=== PATIENT | male | born 1950 | race Caucasian/White ===

== ENCOUNTER 2019-07-03 13:06 | Emergency (ER) | payer OTHER, SELFPAY ==
[2019-07-03 13:06] VITALS: BP 124/85; PULSE 86; RESP 20; TEMP 37; O2SAT 95; BMI 26.6
--- NOTE | 2019-07-03 13:21 | W.ED.CHESTPA ---
HPI - Chest Pain General: Chief Complaint: Abdominal Pain Stated Complaint: ABDOMEN PAIN AND BACK PAIN Time Seen by Provider: 07/03/19 13:07 History of Present Illness: HPI narrative: 69-year-old male comes in complaining of count of epigastric right upper quadrant pain radiating into his chest and into his back. He has had nausea with no vomiting he has had this similar symptoms in the past several years ago is not sure how many he had a stress test which he believes was negative he tells me he did not have any further evaluation after that test. He denies shortness of breath or cough associated with chest pain. He states the pain is much worse with movement especially when he sits up for exam and with deep breath. MD complaint: chest pain Onset (ago): day(s) (1 to 2 days) Timing of current episode: constant Prior episodes: Yes Onset: during rest and other (Worse with position changes and with deep breathing) Pain radiation: back (Middle upper back) Quality: tightness and sharp Relieving factors: remaining still and other (Shallow breathing) Associated symptoms: Reports abdominal pain; Deny dyspnea or fever(s) Review of Systems Const: Denies: fever, chills, body aches, change in appetite, fatigue or malaise ENMT: Denies: throat pain, ear pain, nasal discharge or nasal congestion Card: Denies: chest pain, edema, shortness of breath on exertion or shortness of breath when lying down Resp: Denies: shortness of breath, productive cough or non-productive cough GI: Reports: abdominal pain : Denies: flank pain, painful urination, urinary frequency or urinary urgency Skin/Breast: Denies: rash or itching PFSH ED PFSH: Statuses (acute, chronic, etc) shown below reflect problem list status as previously entered and may not be historically accurate Social History Smoking and tobacco status: former smoker Physical Exam Const: COMMON NORMALS: no apparent distress GENERAL APPEARANCE: cooperative and comfortable ORIENTATION/CONSCIOUSNESS: Yes awake, Yes oriented to person, Yes oriented to place and Yes oriented to time HENMT: COMMON NORMALS: normocephalic, head/scalp atraumatic, hearing grossly normal bilaterally, external ears normal, EAC's normal, TM's normal bilaterally, nasal mucous membranes and turbinates normal, moist oral mucous membranes and oropharynx normal HEAD & SCALP: normocephalic and atraumatic NOSE: nasal mucous membranes and turbinates normal EXTERNAL EAR: Yes external ears normal EXTERNAL AUDITORY CANAL: EAC's normal TYMPANIC MEMBRANE: TM's normal bilaterally Eye: COMMON NORMALS: PERRL, EOMs intact bilaterally, conjunctivae normal and no scleral icterus CONJUNCTIVA: Yes conjunctivae normal PUPIL: Yes PERRL Neck/C-Spine: COMMON NORMALS: full ROM, no lymphadenopathy, supple and no JVD Lymph: LYMPHATIC: no lymphadenopathy noted and no lymphedema noted Resp: COMMON NORMALS: normal respiratory effort, no retractions, no use of accessory muscles and clear to auscultation bilaterally AUSCULTATION: clear to auscultation bilaterally Cardio: COMMON NORMALS: no JVD, regular rate, regular rhythm and no murmurs RATE: regular rate RHYTHM: regular rhythm GI: COMMON NORMALS: soft to palpation and no hepatosplenomegaly AUSCULTATION: Yes normoactive bowel sounds PALPATION: Yes soft, No tender, No guarding and Yes no hepatosplenomegaly Extremity: COMMON NORMALS: normal to inspection, normal capillary refill, no clubbing, cyanosis or edema, no calf tenderness and no pedal edema Neuro: SENSORIUM/ORIENTATION: Yes oriented to person, Yes oriented to place and Yes oriented to time Skin: COMMON NORMALS: no rashes or lesions noted GENERAL SKIN EXAM: no rashes or lesions noted Course ED course: Full evaluation of the patient's his imaging done. He did get some relief with the GI cocktail. start him on pantoprazole 40 daily. Vital Signs: Vital signs: Vital Signs Temperature 98.6 F 07/03/19 13:06 Pulse Rate 71 07/03/19 17:50 Respiratory Rate 16 07/03/19 17:50 Blood Pressure 131/83 07/03/19 17:50 Pulse Oximetry 94 07/03/19 17:50 MDM - Chest Pain Lab Data: Labs: Lab Results 07/03/19 07/03/19 07/03/19 Range/Units 12:51 12:51 12:51 WBC 8.8 (4.0-10.0) 10^3/ uL RBC 4.16 (4.1-5.3) 10^6/u L Hgb 13.4 (11.7-16.6) g/dL Hct 41.4 L (42.0-52.0) % MCV 99.5 H (80-94) fL MCH 32.2 (28.0-34.0) pg MCHC 32.4 (30.0-36.0) g/dL RDW 13.3 (12.1-15.1) % Plt Count 304 (130-400) 10^3/c mm MPV 10.2 (7.4-10.4) fL Neut % (Auto) 64.7 % Lymph % (Auto) 20.3 % Stevens % (Auto) 11.5 % Eos % (Auto) 1.9 % Baso % (Auto) 0.5 % Neut # (Auto) 5.7 (1.8-7.7) 10^3/u L Lymph # (Auto) 1.8 (0.8-4.8) 10^3/u L Stevens # (Auto) 1.0 H (0.2-0.9) 10^3/u L Eos # (Auto) 0.2 (0.0-0.8) 10^3/u L Baso # (Auto) 0.0 (0.0-0.1) 10^3/u L Nucleated RBC % (a uto) 0 % Nucleated RBCs # 0.0 /100WBC PT 13.40 H (10.5-13.3) SECO NDS INR 0.99 (0.8-1.2) APTT 33.9 (23.9-36.7) SECO NDS D-Dimer 2.24 H (0-0.59) ug/mIFE U Sodium 137 (136-145) mmol/L Potassium 3.9 (3.5-5.1) mmol/L Chloride 98 (98-107) mmol/L Carbon Dioxide 26 (22-29) mmol/L Anion Gap 16.9 (5-19) BUN 6 L (8-23) mg/dL Creatinine 1.2 (0.7-1.2) mg/dL GFR Calculation 60.2 L (90-130) mL/min Glucose 104 (74-106) mg/dL Calcium 10.3 H (8.8-10.2) mg/Dl Magnesium 2.0 (1.7-2.3) mg/dL Total Bilirubin 0.3 (0.15-1.2) mg/dL AST 20 (0-40) U/L ALT 24 (0-41) U/L Alkaline Phosphata se 56 (40-130) IU/L Troponin T Baselin e (0-15) ng/mL Troponin T 120 Min [place] (0-15) ng/mL Delta Troponin T (0-10) ABS# Total Protein 6.5 L (6.6-8.7) g/dL Albumin 3.5 (3.5-5.2) g/dL Globulin 3.0 (1.3-4.6) g/dL Lipase 34 (13-60) U/L 07/03/19 07/03/19 Range/Units 12:51 14:55 WBC (4.0-10.0) 10^3/ uL RBC (4.1-5.3) 10^6/u L Hgb (11.7-16.6) g/dL Hct (42.0-52.0) % MCV (80-94) fL MCH (28.0-34.0) pg MCHC (30.0-36.0) g/dL RDW (12.1-15.1) % Plt Count (130-400) 10^3/c mm MPV (7.4-10.4) fL Neut % (Auto) % Lymph % (Auto) % Stevens % (Auto) % Eos % (Auto) % Baso % (Auto) % Neut # (Auto) (1.8-7.7) 10^3/u L Lymph # (Auto) (0.8-4.8) 10^3/u L Stevens # (Auto) (0.2-0.9) 10^3/u L Eos # (Auto) (0.0-0.8) 10^3/u L Baso # (Auto) (0.0-0.1) 10^3/u L Nucleated RBC % (a uto) % Nucleated RBCs # /100WBC PT (10.5-13.3) SECO NDS INR (0.8-1.2) APTT (23.9-36.7) SECO NDS D-Dimer (0-0.59) ug/mIFE U Sodium (136-145) mmol/L Potassium (3.5-5.1) mmol/L Chloride (98-107) mmol/L Carbon Dioxide (22-29) mmol/L Anion Gap (5-19) BUN (8-23) mg/dL Creatinine (0.7-1.2) mg/dL GFR Calculation (90-130) mL/min Glucose (74-106) mg/dL Calcium (8.8-10.2) mg/Dl Magnesium (1.7-2.3) mg/dL Total Bilirubin (0.15-1.2) mg/dL AST (0-40) U/L ALT (0-41) U/L Alkaline Phosphata se (40-130) IU/L Troponin T Baselin e 15 (0-15) ng/mL Troponin T 120 Min [place] 13.94 (0-15) ng/mL Delta Troponin T -1.06 L (0-10) ABS# Total Protein (6.6-8.7) g/dL Albumin (3.5-5.2) g/dL Globulin (1.3-4.6) g/dL Lipase (13-60) U/L Discharge Plan Discharge Patient Disposition: Home, Self-Care Clinical Impression: Chest pain due to GERD Condition: Stable Prescriptions: New pantoprazole 40 mg tablet,delayed release (DR/EC) 40 mg PO QAM 28 Days Qty: 28 RF: 0 Discharge Orders: Discharge Order (Routine); Ordered 07/03/19 Ordered By: Bear Neal Discharge Diet: As Directed Discharge Activity: Increase activity as tolerated Activity Restrictions/Additional Instructions: Follow-up with your primary care doctor in 1 week return if there are further problems Discharge Date/Time: 07/03/19 17:50 Coding Level of Care Code ED Screening Representative for Normag Enmanuel
--- NOTE | 2019-07-03 13:23 | XRR_ITS ---
PROCEDURE INFORMATION: Exam: XR Chest, 1 View Exam date and time: 07/03/2019 1:43 PM Age: 69 years old Clinical indication: Chest pain; Type not specified TECHNIQUE: Imaging protocol: XR of the chest Views: 1 view. COMPARISON: No relevant prior studies available. FINDINGS: Lungs: Unremarkable. No consolidation. Pleural space: Unremarkable. No pleural effusion. No pneumothorax. Heart/Mediastinum: Unremarkable. No cardiomegaly. Bones/joints: Unremarkable. XR/XR chest 1V portable [id number] IMPRESSION: No acute findings.
--- NOTE | 2019-07-03 13:25 | ECG_ITS ---
Measurements Intervals [place] Rate: 82 P: 70 NM: 178 QRS: -86 QRSD: 121 T: 38 QT: 360 QTc: 422 SINUS RHYTHM RIGHT BUNDLE BRANCH BLOCK [120+ ms QRS DURATION, UPRIGHT V1, 40+ ms S IN I/a I/aVL/V4/V5/V6] INFERIOR MYOCARDIAL INFARCTION , PROBABLY OLD [40+ ms Q WAVE AND/OR ST/T AB ABNORMALITY IN II/aVF] No previous ECG available for comparison Electronically Signed On 07-03-2019 20:28:42 SHEET ROLLER OPERATOR by Hanna Moon M.D. [email or web address] curiel
[2019-07-03 13:35] VITALS: O2SAT 94
[2019-07-03 13:38] LABS: Basophils % 0.5 %; Eosinophils # 0.2 10^3/uL (0.0-0.8); Eosinophils % 1.9 %; Hematocrit 41.4 % (42.0-52.0); Hemoglobin 13.4 g/dL (11.7-16.6); Lymphocytes # 1.8 10^3/uL (0.8-4.8); Lymphocytes % 20.3 %; Mean Corpuscular HGB Conc 32.4 g/dL (30.0-36.0); Mean Corpuscular Hemoglobin 32.2 pg (28.0-34.0); Mean Corpuscular Volume 99.5 fL (80-94); Mean Platelet Volume 10.2 fL (7.4-10.4); Monocytes % 11.5 %; Neutrophils # 5.7 10^3/uL (1.8-7.7); Neutrophils % 64.7 %; Nucleated Red Blood Cells % 0 %; Platelet Count 304 10^3/cmm (130-400); Red Blood Count 4.16 10^6/uL (4.1-5.3); Red Cell Distribution Width 13.3 % (12.1-15.1); White Blood Count 8.8 10^3/uL (4.0-10.0)
[2019-07-03 13:47] LABS: Alanine Aminotransferase 24 U/L (0-41); Albumin Level 3.5 g/dL (3.5-5.2); Alkaline Phosphatase 56 IU/L (40-130); Anion Gap 16.9 (5-19); Aspartate Amino Transferase 20 U/L (0-40); Blood Urea Nitrogen 6 mg/dL (8-23); Calcium 10.3 mg/Dl (8.8-10.2); Carbon Dioxide 26 mmol/L (22-29); Chloride 98 mmol/L (98-107); Glomerular Filtration Rate 60.2 mL/min (90-130); Glucose 104 mg/dL (74-106); Lipase 34 U/L (13-60); Potassium 3.9 mmol/L (3.5-5.1); Sodium 137 mmol/L (136-145); Total Bilirubin 0.3 mg/dL (0.15-1.2); Total Protein 6.5 g/dL (6.6-8.7)
[2019-07-03 13:49] LABS: Troponin(5th) Baseline 15 ng/mL (0-15)
[2019-07-03] MEDS: morphine 4 mg/mL SDV 1 mL IVP (13:54)
[2019-07-03] MEDS: ondansetron 2 mg/ML SDV 2 mL 4 MG IVP (13:54)
[2019-07-03 13:56] LABS: INR 0.99 (0.8-1.2); Partial Thromboplastin Time 33.9 SECONDS (23.9-36.7)
[2019-07-03 13:58] LABS: D Dimer 2.24 ug/mIFEU (0-0.59)
--- NOTE | 2019-07-03 14:02 | CT_ITS ---
WS: [id number] CT ABDOMEN AND PELVIS WITH CONTRAST HISTORY: RUQ/epigastric pain TECHNIQUE: Imaging performed of the abdomen and pelvis with IV contrast. Single phase imaging of the abdomen. Coronal and sagittal reformats are submitted. All CT scans at [facility] use at least one of these dose optimization techniques: automated exposure control; mA and/or kV adjustment per patient size (includes targeted exams where dose is matched to clinical indication); or iterativ e reconstruction. IV CONTRAST: Omnipaque 300; 95 mL IV. Oral contrast: No DLP: 1079.73 mGy.cm COMPARISON: None available. Lower thorax: Emphysematous changes at the lung bases. No pleural effusion. Heart is normal size. No hiatal hernia. Liver/biliary system: Normal size with no intrahepatic dilatation. Gallbladder: Normal. No gallstones or wall thickening. No pericholecystic fluid. Pancreas: Normal. Spleen: Normal size spleen with granulomata. Adrenal glands: Normal. Right kidney: Normal. Left kidney: Normal. Aorta: Moderate atherosclerosis abdominal aorta. There is calcified plaque and intimal thickening. La rgest diameter 3.0 cm. No periaortic hematoma. Lymphadenopathy: None. Free fluid: None. GI tract: Appendix is normal. No GI tract obstruction. No mucosal inflammatory changes. There are a f ew scattered sigmoid diverticula without acute diverticulitis. Abdominal wall: Unremarkable abdominal wall. No hernia. Pelvis: No free fluid in the pelvis. Urinary bladder is well distended. Prostate gland is slightly en larged and heterogeneous. Bones: No osteoblastic or osteolytic bone disease. CT/CT abdomen pelvis w con* [id number] IMPRESSION: 1. No acute abdominal or pelvic abnormalities are identified. 2. The appendix is normal. 3. Mild diverticulosis without acute diverticulitis. 4. Moderate atherosclerosis abdominal aorta with mild ectasia and dilatation. 5. Small hiatal hernia. 6. Negative gallbladder. 7. No inflammatory changes surrounding the gallbladder. No biliary dilatation.
[2019-07-03 14:33] VITALS: BP 126/73; PULSE 75; RESP 12; O2SAT 92
[2019-07-03] MEDS: iohexol 300 mg/mL 100 mL Btl IV (14:46)
--- NOTE | 2019-07-03 15:25 | ECG_ITS ---
Measurements Intervals [place] Rate: 76 P: 71 MO: 184 QRS: -80 QRSD: 129 T: 51 QT: 395 QTc: 446 SINUS RHYTHM MARKED LEFT AXIS DEVIATION [QRS AXIS < -30] RIGHT BUNDLE BRANCH BLOCK [120+ ms QRS DURATION, UPRIGHT V1, 40+ ms S IN I/aVL/V4/V5/V6] No previous ECG available for comparison Electronically Signed On 07-03-2019 20:35:50 ACID CONDENSER by Hanna Moon M.D. [id number] f
[2019-07-03 15:32] LABS: Troponin 5 2HR 13.94 ng/mL (0-15); Troponin 5 2HR Delta -1.06 ABS# (0-10)
--- NOTE | 2019-07-03 15:43 | CTR_ITS ---
PROCEDURE INFORMATION: Exam: CT Angiography Chest With Contrast Exam date and time: 07/03/2019 4:25 PM Age: 69 years old Clinical indication: Dyspnea; Additional info: Dyspnea, chest pain TECHNIQUE: Imaging protocol: Computed tomographic angiography of the chest with intravenous contrast. Axial, coronal and sagittal reformatted images were created and reviewed. 3D rendering: MIP and/or 3D reconstructed images were created by the technologist. Total DLP: 670.43 mGy-cm Radiation optimization: All CT scans at this facility use at least one of these dose optimization techniques: automated exposure control; mA and/or kV adjustment per patient size (includes targeted exams where dose is matched to clinical indication); or iterative reconstruction. Contrast material: VISIPAQUE; Contrast volume: 95 ml; Contrast route: IV; COMPARISON: CR XR chest 1V portable [id number] 07/03/2019 1:29 PM FINDINGS: Pulmonary arteries: Contrast opacification satisfactory. No intraluminal filling defect. Aorta: Mild atherosclerotic disease. 3.2 cm infrarenal abdominal aortic aneurysm. No dissection. Lungs: Mild emphysema. Mild peribronchial thickening, suggestive of airway inflammation. Mild linear stranding and groundglass, likely due to atelectasis and/or scarring. No focal consolidation. Scattered calcified granulomata. Pleural space: Biapical pleural thickening. No pleural effusion. No pneumothorax. Heart: Unremarkable. No cardiomegaly. No pericardial effusion. Liver: Coarse calcified hepatic granulomata. Spleen: Coarse calcified splenic granulomata. Lymph nodes: Calcified mediastinal and hilar lymph nodes, consistent with prior granulomatous disease. Bones/joints: No acute osseous abnormality. Osteopenia. Degenerative changes. Soft tissues: Unremarkable. CT/CT angio chest PE protcl [id number] IMPRESSION: 1. No CT evidence of pulmonary embolism. 2. Additional findings, as above. Radiation Dose CTDIVOL = (mGy): DLP = 670.43 (mGy-cm)
[2019-07-03 16:18] VITALS: BP 129/73; PULSE 67; RESP 14; O2SAT 93
[2019-07-03] MEDS: iodixanol 320 mg/mL 100mL Btl 95 ML IV (16:35)
[2019-07-03 17:50] VITALS: BP 131/83; PULSE 71; RESP 16; O2SAT 94
== END 2019-07-03 17:50 | disposition home or self-care (01) ==
PROVIDERS: Emergency Provider Family Medicine
DX: K21.9 Gastro-esophageal reflux disease without esophagitis (principal); Z87.891 Personal history of nicotine dependence
CPT/HCPCS: 36415; 71045; 71275; 74177; 80053; 83690; 83735; 84484; 85025; 85378; 85610; 85730; 93005; 96374; 99281; J2270; J2405; Q9967